=== PATIENT | female | born 1990 | race American Indian/Alaskan Native ===

== ENCOUNTER 2019-03-03 02:20 | Emergency (ER) | payer OTHER ==
[2019-03-03] MEDS ORDERED: IBUPROFEN 600 MG TAB PO ONE ×2 (03:28→03:32)
[2019-03-03 04:17] VITALS: BP 150/101
--- NOTE | 2019-03-03 04:25 | Emergency Department Report ---
ED ENT HPI - General Chief complaint: Earache Stated complaint: EAR PAIN Time Seen by Provider: 03/03/19 04:17 Source: patient Mode of arrival: Ambulatory Limitations: No Limitations - History of Present Illness Initial comments: 28-year-old -[place] female presents to the emergency room for 30 minutes left ear pain. Patient states that the pain woke her up from her sleep. Patient does admit to washing her hair yesterday. Patient denies any past medical history currently takes no medications on a daily basis. Patient has a history of penicillin allergies. MD complaint: ear pain Onset/Timin -: minutes(s) (prior to arrival) Location: L ear Severity: severe Severity scale (0 -10): 10 Quality: aching, sharp, constant Consistency: constant Improves with: none Worsens with: none Associated Symptoms: other (recent URI) - Related Data Previous Rx's Medication Instructions Recorded Last Taken Type Neomycin/Polymyxin B/Hydrocort 2 drop OT TID #1 bottle 03/03/19 Unknown Rx [Onrcwboa-Beqhpocjm-Ye Ear Susp] Allergies Allergy/AdvReac Type Severity Reaction Status Date / Time Penicillins Allergy Hives Verified 03/03/19 03:28 ED Dental HPI - General Chief complaint: Earache Stated complaint: EAR PAIN Time Seen by Provider: 03/03/19 04:17 Source: patient Mode of arrival: Ambulatory Limitations: No Limitations - Related Data Previous Rx's Medication Instructions Recorded Last Taken Type Neomycin/Polymyxin B/Hydrocort 2 drop OT TID #1 bottle 03/03/19 Unknown Rx [Sfkgulsr-Lwxnrtxpf-Wz Ear Susp] Allergies Allergy/AdvReac Type Severity Reaction Status Date / Time Penicillins Allergy Hives Verified 03/03/19 03:28 ED Review of Systems ROS: Stated complaint: EAR PAIN Other details as noted in HPI Comment: All other systems reviewed and negative ED Past Medical Hx - Past Medical History Previous Medical History?: No - Surgical History Past Surgical History?: Yes Additional Surgical History: C-Sec X 1 - Social History Smoking Status: Never Smoker Substance Use Type: None - Medications Home Medications: Home Medications Medication Instructions Recorded Confirmed Last Taken Type Neomycin/Polymyxin B/Hydrocort 2 drop OT TID #1 bottle 03/03/19 Unknown Rx [Zupllhwe-Ppphpxbpu-Dp Ear Susp] ED Physical Exam - General Limitations: No Limitations General appearance: alert, in no apparent distress - Head Head exam: Present: atraumatic, normocephalic - Eye Eye exam: Present: normal appearance - Expanded ENT Exam Expanded TM/Canal exam: Mastoid Tenderness: Left TM, Canal Tenderness: Left TM - Neck Neck exam: Present: normal inspection, full ROM - Neurological Exam Neurological exam: Present: alert, oriented X3, normal gait - Psychiatric Psychiatric exam: Present: normal affect, normal mood - Skin Skin exam: Present: warm, dry, intact, normal color. Absent: rash ED Course Vital Signs 03/03/19 03/03/19 02:26 04:16 Temperature 98.3 F Pulse Rate 82 74 Respiratory 18 20 Rate Blood Pressure 135/101 Blood Pressure 150/101 [Right] O2 Sat by Pulse 98 99 Oximetry ED Medical Decision Making - Medical Decision Making 28-year-old -S[place]i female presents to the emergency room for 30 minutes left ear pain. Patient states that the pain woke her up from her sleep. Patient does admit to washing her hair yesterday. Patient denies any past medical history currently takes no medications on a daily basis. Patient has a history of penicillin allergies. Critical care attestation.: If time is entered above; I have spent that time in minutes in the direct care of this critically ill patient, excluding procedure time. ED Disposition Clinical Impression: Left otitis externa Qualifiers: Otitis externa type: swimmer's ear Chronicity: acute Qualified Code(s): H60.332 - Swimmer's ear, left ear Disposition: DC-01 TO HOME OR SELFCARE Is pt being admited?: No Does the pt Need Aspirin: No Condition: Stable Instructions: Otitis Externa (ED) Prescriptions: Neomycin/Polymyxin B/Hydrocort [Ppnigbvb-Bhfoazkxu-Hp Ear Susp] 2 drop OT TID #1 bottle Referrals: FARAZ MALHOTRA MD [Staff Physician] - 3-5 Days Forms: Work/School Release Form(ED)
== END 2019-03-03 05:05 | disposition home or self-care (01) ==
LOC: ED 02:20
DX: H60.92 Unspecified otitis externa, left ear (principal); Z98.890 Other specified postprocedural states; Z79.899 Other long term (current) drug therapy; Z88.0 Allergy status to penicillin
CPT/HCPCS: 99282

== ENCOUNTER 2020-09-24 15:14 | Emergency (ER) | payer OTHER ==
[2020-09-24] MEDS ORDERED: IBUPROFEN 800 MG TAB PO ONE (16:40)
[2020-09-24] MEDS ORDERED: ACETAMINOPHEN 500 MG TAB PO ONE (16:40)
[2020-09-24] MEDS ORDERED: SODIUM CHLORIDE 0.9% 1000 ML IV SOLN IV ONE (16:43)
[2020-09-24] MEDS ORDERED: AZITHROMYCIN 250 MG TAB PO ONE (17:01)
[2020-09-24] MEDS ORDERED: AZITHROMYCIN/NS 500 MG/250 ML 500 MG/250 ML BAG IV ONE (17:12)
--- NOTE | 2020-09-24 17:15 | Emergency Department Report ---
HPI - General Chief Complaint: Fever Time Seen by Provider: 09/24/20 17:12 - HPI HPI: This is a 29-year-old -[place]ian female presents to the emergency department with a complaint of a mixed dry and productive cough, generalized body aches, and a subjective fever that has been going on since Sunday, 4 days ago. The patient has been taking ibuprofen without any alleged break in her fever. She last used ibuprofen last night. She has a past medical history of diabetes. She denies any tobacco or illicit drug use. She is vaccinated against COVID-19. She says that her son has just started to spike a fever. No recent travel. Her primary care physician is a Dr. Mendieta at [facility]. ED Past Medical Hx - Past Medical History Previous Medical History?: Yes Hx Diabetes: Yes - Surgical History Past Surgical History?: Yes Additional Surgical History: C-Sec X 1 - Social History Smoking Status: Never Smoker Substance Use Type: None - Medications Home Medications: Home Medications Medication Instructions Recorded Confirmed Last Taken Type Neomycin/Polymyxin B/Hydrocort 2 drop OT TID #1 bottle 03/03/19 Unknown Rx [Tyuwzknh-Qysseeuje-Sk Ear Susp] Fluconazole [Diflucan TAB] 100 mg PO QDAY #1 tablet 09/24/20 Unknown Rx Sulfamethoxazole/Trimethoprim 1 each PO BID #10 tablet 09/24/20 Unknown Rx [Bactrim DS TAB] ED Review of Systems ROS: Stated complaint: FEVER, SOB BODYACHE Other details as noted in HPI Comment: All other systems reviewed and negative Constitutional: chills, fever Eyes: denies: eye pain, vision change ENT: denies: ear pain, throat pain Respiratory: cough. denies: shortness of breath Cardiovascular: denies: chest pain, palpitations Gastrointestinal: denies: abdominal pain, vomiting Genitourinary: denies: dysuria, discharge Musculoskeletal: myalgia. denies: joint swelling Skin: denies: rash, lesions Neurological: denies: headache, weakness Physical Exam - Physical Exam Vital Signs: Vital Signs 09/24/20 16:35 Temperature 103.1 F H Pulse Rate 118 H Respiratory 22 Rate Blood Pressure 145/110 [Right] O2 Sat by Pulse 98 Oximetry Physical Exam: GENERAL: The patient is well-developed well-nourished. HENT: Normocephalic. Atraumatic. Patient has moist mucous membranes. EYES: Extraocular motions are intact. Pupils equal reactive to light bilaterally. NECK: Supple. Trachea is midline. CHEST/LUNGS: Clear to auscultation. A productive sounding cough heard during e xamination. No tachypnea or accessory muscle use. There is no respiratory distress noted. HEART/CARDIOVASCULAR: Regular. There is mild tachycardia. There is no murmur. ABDOMEN: Abdomen is soft, nontender. Patient has normal bowel sounds. There is no abdominal distention. SKIN: Skin is warm and dry. NEURO: The patient is awake, alert, and oriented. The patient is cooperative. The patient has no focal neurologic deficits. Normal speech. MUSCULOSKELETAL: There is no tenderness or deformity. There is no limitation range of motion. ED Course Vital Signs 09/24/20 16:35 Temperature 103.1 F H Pulse Rate 118 H Respiratory 22 Rate Blood Pressure 145/110 [Right] O2 Sat by Pulse 98 Oximetry ED Medical Decision Making - Lab Data Result diagrams: 09/24/20 17:00 09/24/20 17:00 Lab Results 09/24/20 09/24/20 09/24/20 Range/Units 17:00 17:00 17:00 WBC 3.8 L (4.5-11.0) K/mm3 RBC 5.24 H (3.65-5.03) M/mm3 Hgb 14.6 H (10.1-14.3) gm/dl Hct 44.4 H (30.3-42.9) % MCV 85 (79-97) fl MCH 28 (28-32) pg MCHC 33 (30-34) % RDW 14.3 (13.2-15.2) % Plt Count 172 (140-440) K/mm3 Lymph % (Auto) 24.1 (13.4-35.0) % [place] % (Auto) 7.5 H (0.0-7.3) % Eos % (Auto) 0.1 (0.0-4.3) % Baso % (Auto) 0.4 (0.0-1.8) % Lymph # (Auto) 0.9 L (1.2-5.4) K/mm3 [place] # (Auto) 0.3 (0.0-0.8) K/mm3 Eos # (Auto) 0.0 (0.0-0.4) K/mm3 Baso # (Auto) 0.0 (0.0-0.1) K/mm3 Seg Neutrophils % 67.9 (40.0-70.0) % Seg Neutrophils # 2.6 (1.8-7.7) K/mm3 Sodium 136 L (137-145) mmol/L Potassium 3.7 (3.6-5.0) mmol/L Chloride 99.5 (98-107) mmol/L Carbon Dioxide 24 (22-30) mmol/L Anion Gap 16 mmol/L BUN 9 (7-17) mg/dL Creatinine 0.7 (0.6-1.2) mg/dL Estimated GFR > 60 ml/min BUN/Creatinine Ratio 13 % Glucose 197 H (65-100) mg/dL Lactic Acid 1.60 (0.7-2.0) mmol/L Calcium 9.2 (8.4-10.2) mg/dL Total Bilirubin 0.40 (0.1-1.2) mg/dL AST 25 (5-40) units/L ALT 39 (7-56) units/L Alkaline Phosphatase 76 (35-129) units/L Total Creatine Kinase (30-135) units/L Total Protein 8.0 (6.3-8.2) g/dL Albumin 4.3 (3.9-5) g/dL Albumin/Globulin Ratio 1.2 % HCG, Qual (Negative) Urine Color (Yellow) Urine Turbidity (Clear) Urine pH (5.0-7.0) Ur Specific [place] (1.003-1.030) Urine Protein (Negative) mg/dL Urine Glucose (UA) (Negative) mg/dL Urine Ketones (Negative) mg/dL Urine Blood (Negative) Urine Nitrite (Negative) Urine Bilirubin (Negative) Urine Urobilinogen (<2.0) mg/dL Ur Leukocyte Esterase (Negative) Urine WBC (Auto) (0.0-6.0) /HPF Urine RBC (Auto) (0.0-6.0) /HPF U Epithel Cells (Auto) (0-13.0) /HPF Urine Bacteria (Auto) (Negative) /HPF Urine Mucus /HPF Urine Yeast (Budding) /HPF 09/24/20 09/24/20 09/24/20 Range/Units 17:00 17:00 Unknown WBC (4.5-11.0) K/mm3 RBC (3.65-5.03) M/mm3 Hgb (10.1-14.3) gm/dl Hct (30.3-42.9) % MCV (79-97) fl MCH (28-32) pg MCHC (30-34) % RDW (13.2-15.2) % Plt Count (140-440) K/mm3 Lymph % (Auto) (13.4-35.0) % [place] % (Auto) (0.0-7.3) % Eos % (Auto) (0.0-4.3) % Baso % (Auto) (0.0-1.8) % Lymph # (Auto) (1.2-5.4) K/mm3 [place] # (Auto) (0.0-0.8) K/mm3 Eos # (Auto) (0.0-0.4) K/mm3 Baso # (Auto) (0.0-0.1) K/mm3 Seg Neutrophils % (40.0-70.0) % Seg Neutrophils # (1.8-7.7) K/mm3 Sodium (137-145) mmol/L Potassium (3.6-5.0) mmol/L Chloride (98-107) mmol/L Carbon Dioxide (22-30) mmol/L Anion Gap mmol/L BUN (7-17) mg/dL Creatinine (0.6-1.2) mg/dL Estimated GFR ml/min BUN/Creatinine Ratio % Glucose (65-100) mg/dL Lactic Acid (0.7-2.0) mmol/L Calcium (8.4-10.2) mg/dL Total Bilirubin (0.1-1.2) mg/dL AST (5-40) units/L ALT (7-56) units/L Alkaline Phosphatase (35-129) units/L Total Creatine Kinase 87 (30-135) units/L Total Protein (6.3-8.2) g/dL Albumin (3.9-5) g/dL Albumin/Globulin Ratio % HCG, Qual Negative (Negative) Urine Color Yellow (Yellow) Urine Turbidity Cloudy (Clear) Urine pH 5.0 (5.0-7.0) Ur Specific [place] 1.028 (1.003-1.030) Urine Protein 30 mg/dl (Negative) mg/dL Urine Glucose (UA) >=500 (Negative) mg/dL Urine Ketones Tr (Negative) mg/dL Urine Blood Neg (Negative) Urine Nitrite Neg (Negative) Urine Bilirubin Neg (Negative) Urine Urobilinogen 2.0 (<2.0) mg/dL Ur Leukocyte Esterase Lg (Negative) Urine WBC (Auto) 56.0 H (0.0-6.0) /HPF Urine RBC (Auto) 4.0 (0.0-6.0) /HPF U Epithel Cells (Auto) 29.0 H (0-13.0) /HPF Urine Bacteria (Auto) 2+ (Negative) /HPF Urine Mucus Few /HPF Urine Yeast (Budding) 1+ /HPF - Radiology Data Radiology results: image reviewed interpreted by me: Chest x-ray does not show any acute process. There are no pleural effusions, obvious pneumonia and there is no pneumothorax. No widened mediastinum. - Medical Decision Making This patient presents to the emergency department with the complaint of a 4-day history of fever, body aches, and a mixed dry and productive cough. Heart and lungs are normal to auscultation and the patient does not appear in any respiratory or acute distress. There is some mild tachypnea, most likely secondary to the patient's fever which was initially 103.1 F. The patient was given both ibuprofen and Tylenol through triage and a code sepsis was initiated through triage. The patient's labs have been mostly unremarkable including no leukocytosis, no lactic acidosis, but urinalysis does show urinary tract infection. The patient was given some IV fluid resuscitation and a dose of empiric antibiotics for the code sepsis. The patient's symptoms are most consistent with a viral upper respiratory infection, however the patient is gett ing a prescription for antibiotics for the UTI. She has been instructed to follow-up with the PCP and return to the ER with any worsening of her symptoms or with any acute distress. The patient's vitals were rechecked and the fever has started to come down, and the tachycardia is improving. We discussed using both Tylenol and ibuprofen for fever and discomfort. Critical Care Time: No Critical care attestation.: If time is entered above; I have spent that time in minutes in the direct care of this critically ill patient, excluding procedure time. ED Disposition Clinical Impression: Viral upper respiratory infection UTI (urinary tract infection) Qualifiers: Urinary tract infection type: acute cystitis Hematuria presence: without hematuria Qualified Code(s): N30.00 - Acute cystitis without hematuria Fever Qualifiers: Fever type: unspecified Qualified Code(s): R50.9 - Fever, unspecified Disposition: TO HOME OR SELFCARE Is pt being admited?: No Condition: Stable Instructions: Fever, Adult, Upper Respiratory Infection, Adult, Urinary Tract Infection, Adult Additional Instructions: Please follow-up with a primary care physician in the next few days. You can take Tylenol every 4-6 hours and ibuprofen every 6-8 hours, using the dosing on the back of the bottle, as needed for fever or body aches. Take the antibiotics as prescribed. Return to the emergency department with any worsening of your symptoms, new or concerning symptoms not addressed during this current emergency department visit, or with any acute distress. Prescriptions: Sulfamethoxazole/Trimethoprim [Bactrim DS TAB] 1 each PO BID #10 tablet Fluconazole [Diflucan TAB] 100 mg PO QDAY #1 tablet Referrals: MARISOL CARBAJAL MD [Staff Physician] - 3-5 Days [facility] [Provider Group] - 3-5 Days Time of Disposition: 18:46
[2020-09-24 17:16] LABS: Basophils % (Auto) 0.4 % (0.0-1.8); Eosinophils % (Auto) 0.1 % (0.0-4.3); Hematocrit 44.4 % (30.3-42.9); Hemoglobin 14.6 gm/dl (10.1-14.3); Lymphocytes # (Auto) 0.9 K/mm3 (1.2-5.4); Lymphocytes % (Auto) 24.1 % (13.4-35.0); Mean Corpuscular HGB Conc 33 % (30-34); Mean Corpuscular Volume 85 fl (79-97); Monocytes # (Auto) 0.3 K/mm3 (0.0-0.8); Monocytes % (Auto) 7.5 % (0.0-7.3); Platelet Count 172 K/mm3 (140-440); Red Blood Count 5.24 M/mm3 (3.65-5.03); Red Cell Distribution Width 14.3 % (13.2-15.2)
[2020-09-24 17:33] LABS: Alanine Aminotransferase 39 units/L (7-56); Albumin 4.3 g/dL (3.9-5); Blood Urea Nitrogen 9 mg/dL (7-17); Calcium 9.2 mg/dL (8.4-10.2); Hemolysis Index 2
[2020-09-24 17:34] LABS: BUN/Creatinine Ratio 13
[2020-09-24 17:41] LABS: Bacteria,Urine 2+ /HPF (Negative); Bilirubin,Urine NEG (Negative); Blood,Urine NEG (Negative); Color,Urine Yellow (Yellow); Mucus,Urine FEW /HPF
[2020-09-24 17:46] VITALS: BP 135/88
--- NOTE | 2020-09-24 17:48 | XRay Report ---
CHEST 1 VIEW 09/24/2020 5:43 PM INDICATION / CLINICAL INFORMATION: Cough. COMPARISON: None available. FINDINGS: SUPPORT DEVICES: None. HEART / MEDIASTINUM: No significant abnormality. LUNGS / PLEURA: No significant pulmonary or pleural abnormality. No pneumothorax. ADDITIONAL FINDINGS: No significant additional findings. IMPRESSION: 1. No acute findings. Signer Name: Martin Huynh MD Signed: 09/24/2020 5:43 PM Workstation Name: [id number]
== END 2020-09-24 20:24 | disposition home or self-care (01) ==
LOC: ED 15:14
DX: N39.0 Urinary tract infection, site not specified (principal); J06.9 Acute upper respiratory infection, unspecified; B97.89 Other viral agents as the cause of diseases classified elsewhere; R50.9 Fever, unspecified; E11.9 Type 2 diabetes mellitus without complications; Z98.890 Other specified postprocedural states; Z79.899 Other long term (current) drug therapy; Z88.0 Allergy status to penicillin
CPT/HCPCS: 36415; 71045; 80053; 81001; 82140; 82550; 84703; 85025; 87040; 87086; 96365; 99284; J0456; J7030

== ENCOUNTER 2020-09-27 17:46 | Emergency (ER) | payer OTHER ==
[2020-09-27 22:12] VITALS: BP 136/85
--- NOTE | 2020-09-27 22:14 | Emergency Department Report ---
- General Chief Complaint: Upper Respiratory Infection Stated Complaint: SHORTNESS OF BREATH/FEVER NO APPETITE Time Seen by Provider: 09/27/20 21:51 Source: patient Mode of arrival: Ambulatory Limitations: No Limitations - History of Present Illness Initial Comments: 29-year-old female, history of diabetes, presents to ED with shortness of breath, URI symptoms, concern for COVID-19 infection. Patient states symptoms began 6 days ago, consisting of fever, nausea, vomiting, cough, loss of smell and taste, and now shortness of breath. Patient states her son was diagnosed with COVID-19 3 days ago. Patient states she was tested at [facility] on yesterday but has not yet received her results. Patient reports she received the [employer] COVID-19 vaccine in May 2020. Patient was seen here in the ED 3 days ago for same. Chest x-ray was normal at that time. She was discharged home. MD Complaint: fever, cough -: days(s) (6) Severity: moderate Consistency: constant Improves With: nothing Worsens With: nothing Context: sick contacts Associated Symptoms: fever, headache, chest pain, shortness of breath, nausea, vomiting Treatments Prior to Arrival: Ibuprofen - Related Data Previous Rx's Medication Instructions Recorded Last Taken Type Neomycin/Polymyxin B/Hydrocort 2 drop OT TID #1 bottle 03/03/19 Unknown Rx [Dtwdltoa-Rbjfcjsyz-Iv Ear Susp] Fluconazole [Diflucan TAB] 100 mg PO QDAY #1 tablet 09/24/20 Unknown Rx Sulfamethoxazole/Trimethoprim 1 each PO BID #10 tablet 09/24/20 Unknown Rx [Bactrim DS TAB] Azithromycin [Zithromax TAB] 250 mg PO QDAY 4 Days #4 tablet 09/28/20 Unknown Rx Benzonatate [Tessalon Perles] 100 mg PO Q8HR PRN #20 capsule 09/28/20 Unknown Rx Ondansetron [Zofran Odt] 4 mg PO Q8HR PRN #20 tab.rapdis 09/28/20 Unknown Rx Allergies Allergy/AdvReac Type Severity Reaction Status Date / Time Penicillins Allergy Hives Verified 03/03/19 03:28 ED Review of Systems ROS: Stated complaint: SHORTNESS OF BREATH/FEVER NO APPETITE Other details as noted in HPI Comment: All other systems reviewed and negative Constitutional: fever ENT: other (Reports loss of smell and taste) Respiratory: shortness of breath Cardiovascular: chest pain Gastrointestinal: nausea, vomiting ED Past Medical Hx - Past Medical History Previous Medical History?: Yes Hx Diabetes: Yes - Surgical History Past Surgical History?: Yes Additional Surgical History: C-Sec X 1 - Social History Smoking Status: Never Smoker Substance Use Type: None - Medications Home Medications: Home Medications Medication Instructions Recorded Confirmed Last Taken Type Neomycin/Polymyxin B/Hydrocort 2 drop OT TID #1 bottle 03/03/19 Unknown Rx [Emxymkge-Cvdwhrluf-Vl Ear Susp] Fluconazole [Diflucan TAB] 100 mg PO QDAY #1 tablet 09/24/20 Unknown Rx Sulfamethoxazole/Trimethoprim 1 each PO BID #10 tablet 09/24/20 Unknown Rx [Bactrim DS TAB] Azithromycin [Zithromax TAB] 250 mg PO QDAY 4 Days #4 tablet 09/28/20 Unknown Rx Benzonatate [Tessalon Perles] 100 mg PO Q8HR PRN #20 capsule 09/28/20 Unknown Rx Ondansetron [Zofran Odt] 4 mg PO Q8HR PRN #20 tab.rapdis 09/28/20 Unknown Rx ED Physical Exam - General Limitations: No Limitations General appearance: alert - Head Head exam: Present: atraumatic, normocephalic - Eye Eye exam: Present: normal appearance, EOMI - ENT ENT exam: Present: mucous membranes moist - Neck Neck exam: Present: normal inspection - Respiratory Respiratory exam: Present: respiratory distress (Mild), other (Patient is tachypneic, breathless when talking) - Cardiovascular Cardiovascular Exam: Present: normal rhythm, tachycardia - GI/Abdominal GI/Abdominal exam: Present: soft. Absent: distended, tenderness - Extremities Exam Extremities exam: Present: normal inspection - Neurological Exam Neurological exam: Present: alert, oriented X3 - Psychiatric Psychiatric exam: Present: normal affect, normal mood - Skin Skin exam: Present: warm, dry, intact, normal color ED Course Vital Signs 09/27/20 09/27/20 09/27/20 19:01 19:26 21:57 Temperature 99.7 F H Pulse Rate 101 H Respiratory 18 Rate Blood Pressure 136/85 Blood Pressure 120/79 [Right] O2 Sat by Pulse 93 99 95 Oximetry 09/27/20 09/27/20 09/27/20 22:00 22:01 22:15 Temperature Pulse Rate 97 H Respiratory 29 H Rate Blood Pressure 136/85 136/85 Blood Pressure [Right] O2 Sat by Pulse 95 95 95 Oximetry 09/27/20 09/27/20 09/27/20 22:31 23:01 23:15 Temperature Pulse Rate 96 H 97 H 100 H Respiratory 30 H 30 H 18 Rate Blood Pressure 136/85 136/85 136/85 Blood Pressure [Right] O2 Sat by Pulse 97 95 96 Oximetry 09/27/20 09/27/20 09/28/20 23:31 23:45 00:01 Temperature Pulse Rate 97 H 96 H 97 H Respiratory 30 H 24 28 H Rate Blood Pressure 136/85 136/85 136/85 Blood Pressure [Right] O2 Sat by Pulse 95 96 95 Oximetry 09/28/20 00:15 Temperature Pulse Rate 94 H Respiratory 27 H Rate Blood Pressure 136/85 Blood Pressure [Right] O2 Sat by Pulse 92 Oximetry ED Medical Decision Making - Lab Data Result diagrams: 09/27/20 23:11 09/27/20 23:11 - EKG Data -: EKG Interpreted by Me EKG shows normal: sinus rhythm, axis, intervals, QRS complexes, ST-T waves Rate: normal - EKG Data Interpretation: no acute changes - Radiology Data Radiology results: report reviewed, image reviewed - Medical Decision Making 29-year-old female presents to ED with shortness of breath. Patient likely has COVID-19 infection, as her son recently tested positive 3 days ago. Patient is awaiting her COVID-19 test results. She reports fever, cough, headache, loss of smell and taste, shortness of breath. At rest, O2 sat are 96%. With ambulation O2 sat drops no lower than 92% on room air. Chest x-ray shows minimal patchy airspace disease in the lung bases which could represent atelecta sis or evolving pneumonia. EKG is normal. Troponin and D-dimer are both normal as well. Patient will be discharged at this time with prescriptions. I have advised patient to buy a portable pulse oximeter so that she will be able to check her O2 sats. Return precautions given. - Differential Diagnosis COVID-19, pneumonia, PE, ACS Critical care attestation.: If time is entered above; I have spent that time in minutes in the direct care of this critically ill patient, excluding procedure time. ED Disposition Clinical Impression: Suspected 2019 novel coronavirus infection, Pneumonia Disposition: DC-01 TO HOME OR SELFCARE Is pt being admited?: No Condition: Stable Instructions: COVID-19 Frequently Asked Questions, Prevent the Spread of COVID- 19 if You Are Sick - CDC, Bacterial Pneumonia (ED) Additional Instructions: Please quarantine for total of 14 days. Please buy a pulse oximeter to check your oxygen level. If it drops below 90% return to the emergency room. Return to emergency room if you begin to feel worse. Prescriptions: Benzonatate [Tessalon Perles] 100 mg PO Q8HR PRN #20 capsule PRN Reason: Cough Azithromycin [Zithromax TAB] 250 mg PO QDAY 4 Days #4 tablet Ondansetron [Zofran Odt] 4 mg PO Q8HR PRN #20 tab.rapdis PRN Reason: Vomiting Referrals: PRIMARY CARE, [Primary Care Provider] - 3-5 Days Time of Disposition: 01:09
--- NOTE | 2020-09-27 22:41 | XRay Report ---
CHEST 1 VIEW 09/27/2020 9:22 PM INDICATION / CLINICAL INFORMATION: SOB, cough; son positive for COVID. COMPARISON: 09/24/2020 FINDINGS: SUPPORT DEVICES: None. HEART / MEDIASTINUM: No significant abnormality. LUNGS / PLEURA: There is minimal patchy airspace opacity noted in the lung bases. No pneumothorax. ADDITIONAL FINDINGS: No significant additional findings. IMPRESSION: 1. There is minimal patchy airspace opacity noted in the lung bases. Which could represent atelectasi s or evolving pneumonia including atypical pneumonia. Signer Name: Miguel A Kellre MD Signed: 09/27/2020 10:36 PM Workstation Name: [id number]
[2020-09-28 00:04] LABS: Hemoglobin 14.1 gm/dl (10.1-14.3); Lymphocytes # (Auto) 1.3 K/mm3 (1.2-5.4); Monocytes # (Auto) 0.3 K/mm3 (0.0-0.8)
[2020-09-28 00:14] LABS: Blood Urea Nitrogen 9 mg/dL (7-17); Calcium 8.8 mg/dL (8.4-10.2); Hemolysis Index 0
[2020-09-28 00:16] LABS: BUN/Creatinine Ratio 13
[2020-09-28 00:19] LABS: Basophils % (Auto) 0.3 % (0.0-1.8); Hematocrit 42.7 % (30.3-42.9); Lymphocytes % (Auto) 23.7 % (13.4-35.0); Mean Corpuscular HGB Conc 33 % (30-34); Mean Corpuscular Volume 84 fl (79-97); Monocytes % (Auto) 6.1 % (0.0-7.3); Platelet Count 183 K/mm3 (140-440); Red Blood Count 5.07 M/mm3 (3.65-5.03); Red Cell Distribution Width 14.2 % (13.2-15.2)
[2020-09-28] MEDS ORDERED: AZITHROMYCIN 250 MG TAB PO ONE (01:06)
--- NOTE | 2020-09-28 10:22 | Electrocardiograph Report ---
[facility] Test Date: 2020-09-27 Test Time: 23:45:46 Pat Name: LISBETH ROSS Department: Room: Gender: F Diesel Engine Operator: CHANTELLE : 1990 Requested By: BELINDA AHN Order Number: [id number] Reading MD: Chin Ureña Measurements Intervals [place] Rate: 94 P: 38 [place]: 166 QRS: 40 QRSD: 85 T: 7 QT: 350 QTc: 438 Interpretive Statements Sinus rhythm No previous ECG available for comparison Electronically Signed On 09-28-2020 10:22:22 EDT by Chin Ureña
== END 2020-09-28 01:30 | disposition home or self-care (01) ==
LOC: ED 17:46
DX: J18.9 Pneumonia, unspecified organism (principal); Z20.822 Contact with and (suspected) exposure to COVID-19; E11.9 Type 2 diabetes mellitus without complications; Z98.890 Other specified postprocedural states; Z79.2 Long term (current) use of antibiotics; Z79.899 Other long term (current) drug therapy; Z88.0 Allergy status to penicillin
CPT/HCPCS: 36415; 71045; 80048; 84484; 84703; 85025; 85379; 93005

== ENCOUNTER 2021-03-26 17:13 | Emergency (ER) | payer OTHER ==
--- NOTE | 2021-03-26 18:44 | Emergency Department Report ---
ED Rash HPI - HPI Chief Complaint: Skin Rash Stated Complaint: RASH OVER TRUNK OF BODY, ITCHY Duration: 3 Days Location: Abdomen Rash Symptoms: Yes Itching, No Facial Swelling, No Tongue/Oral Swelling, No Breathing Difficulties, No Choking Sensation, No Wheezing/Dyspnea, No Peeling, No Blistering, No Fever, No Lightheaded, No Malaise, No Myalgias Severity: mild Other History: 30-year-old female presents to the ED with rash over the abdomen x3 days she states that she is 5 weeks . Patient states that she has taken Benadryl x1 with mild relief. Patient is unknown what cause the rash. She states that she awakened with a rash on . Denies any other complaint. ED Review of Systems ROS: Stated complaint: RASH OVER TRUNK OF BODY, ITCHY Other details as noted in HPI Constitutional: denies: chills, fever Eyes: denies: eye pain, eye discharge, vision change ENT: denies: ear pain, throat pain Respiratory: denies: cough, shortness of breath, wheezing Cardiovascular: denies: chest pain, palpitations Endocrine: no symptoms reported Gastrointestinal: denies: abdominal pain, nausea, diarrhea Genitourinary: denies: urgency, dysuria, discharge Musculoskeletal: denies: back pain, joint swelling, arthralgia Skin: rash. denies: lesions Neurological: denies: headache, weakness, paresthesias Psychiatric: denies: anxiety, depression Hematological/Lymphatic: denies: easy bleeding, easy bruising ED Past Medical Hx - Past Medical History Hx Diabetes: Yes - Surgical History Additional Surgical History: C-Sec X 1 - Social History Smoking Status: Never Smoker Substance Use Type: None - Medications Home Medications: Home Medications Medication Instructions Recorded Confirmed Last Taken Type Neomycin/Polymyxin B/Hydrocort 2 drop OT TID #1 bottle 03/03/19 Unknown Rx [Wcopvfhr-Zspcypnub-Co Ear Susp] Fluconazole [Diflucan TAB] 100 mg PO QDAY #1 tablet 09/24/20 Unknown Rx Sulfamethoxazole/Trimethoprim 1 each PO BID #10 tablet 09/24/20 Unknown Rx [Bactrim DS TAB] Azithromycin [Zithromax TAB] 250 mg PO QDAY 4 Days #4 tablet 09/28/20 Unknown Rx Benzonatate [Tessalon Perles] 100 mg PO Q8HR PRN #20 capsule 09/28/20 Unknown Rx Ondansetron [Zofran Odt] 4 mg PO Q8HR PRN #20 tab.rapdis 09/28/20 Unknown Rx Rash Exam - Exam General: Vital signs noted. No distress. Alert and acting appropriately. HEENT: No Periorbital Edema, No Conjuctival Injection, No Chemosis, No Perioral Edema, No Tongue Edema, No Uvular Edema, No Compromised Airway, No Drooling Lungs: Yes Good Air Exchange (Normal Breath Sounds), No Wheezes, No Ronchi, No Stridor, No Cough, No Labored Respirations, No Retractions, No Use of Accessory Muscles, No Other Abnormal Lung Sounds Heart: Yes Regular, No Murmur Skin: Yes Erythema, No Urticarial Rash, No Maculopapular Rash, No Morbilliform rash, No Bulla(e), No Excoriations, No Weeping, No Tenderness, No Edema, No Encrustations Other: Positive: Abdomen Normal, Neurologic Normal, Musculoskeletal Normal ED Medical Decision Making - Medical Decision Making 30-year-old female presents to the ED with rash over the abdomen x3 days she states that she is 5 weeks . Patient states that she has taken Benadryl x1 with mild relief. Patient is unknown what cause the rash. She states that she awakened with a rash on . Denies any other complaint. Discussed plan of care with patient . Explained to patient to take Benadryl [id number] every 8 hours for itching. Follow-up with primary care doctor or [facility]. Patient verbalized discharge plan and instructions - Differential Diagnosis Bed Bug ,scabies, contact dermatitis Critical care attestation.: If time is entered above; I have spent that time in minutes in the direct care of this critically ill patient, excluding procedure time. ED Disposition Clinical Impression: Contact dermatitis Qualifiers: Contact dermatitis type: unspecified Contact dermatitis trigger: other trigger Qualified Code(s): L25.8 - Unspecified contact dermatitis due to other agents Disposition: HOME / SELF CARE / HOMELESS Is pt being admited?: No Does the pt Need Aspirin: No Condition: Stable Instructions: Contact Dermatitis, [id number] Additional Instructions: Take Benadryl [id number] Follow-up with primary care doctor or [facility] Return to the ED for any worsening symptoms Referrals: PRIMARY CARE, [Primary Care Provider] - 3-5 Days Time of Disposition: 18:49
[2021-03-26 18:49] VITALS: BP 139/58
== END 2021-03-26 19:00 | disposition home or self-care (01) ==
LOC: ED 17:13
DX: O26.891 Other specified pregnancy related conditions, first trimester (principal); L25.8 Unspecified contact dermatitis due to other agents; Z3A.01 Less than 8 weeks gestation of pregnancy
CPT/HCPCS: 99282

== ENCOUNTER 2021-05-08 10:36 | Emergency (ER) | payer OTHER ==
[2021-05-08] MEDS ORDERED: IBUPROFEN 800 MG TAB PO ONE (12:09)
--- NOTE | 2021-05-08 12:48 | XRay Report ---
LEFT FOOT 3 VIEW(S) INDICATION / CLINICAL INFORMATION: pain COMPARISON: None available. FINDINGS: BONES / JOINT(S): No acute fracture or subluxation. No significant arthritis. 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 ADDITIONAL FINDINGS: None. Signer Name: Juancarlos Ramos DO Signed: 05/08/2021 12:44 PM Workstation Name: [id number]
--- NOTE | 2021-05-08 13:29 | Emergency Department Report ---
ED Lower Extremity HPI - General Chief Complaint: Pain General Stated Complaint: FOOT AND LEG PAIN Time Seen by Provider: 05/08/21 11:42 Source: patient Mode of arrival: Wheelchair Limitations: Physical Limitation - History of Present Illness Initial Comments: This is a 30-year-old female nontoxic, well nourished in appearance, no acute signs of distress presents to the ED with c/o of left foot pain x several days. Patient denies any injuries or trauma. Patient denies any numbness, tingling, fever, chills, nausea, vomiting, chest pain, shortness of breath, headache, stiff neck. Patient denies any joint swelling or joint redness. Patient denies decreased range of motion. Patient stated has decreased gait due to pain. Patient stated allergies to PCN. MD Complaint: foot injury -: days(s) Injury: Foot: Left Place: home Severity: mild Severity scale (0 -10): 3 Improves With: immobilization Worsens With: weight bearing, palpation Associated Symptoms: able to partially bear weight. denies: snap/pop sensation, swelling, numbness, tingling, unable to bear weight - Related Data Previous Rx's Medication Instructions Recorded Last Taken Type Neomycin/Polymyxin B/Hydrocort 2 drop OT TID #1 bottle 03/03/19 Unknown Rx [Fjsttwey-Nkdzmcpuo-Fv Ear Susp] Fluconazole [Diflucan TAB] 100 mg PO QDAY #1 tablet 09/24/20 Unknown Rx Sulfamethoxazole/Trimethoprim 1 each PO BID #10 tablet 09/24/20 Unknown Rx [Bactrim DS TAB] Azithromycin [Zithromax TAB] 250 mg PO QDAY 4 Days #4 tablet 09/28/20 Unknown Rx Benzonatate [Tessalon Perles] 100 mg PO Q8HR PRN #20 capsule 09/28/20 Unknown Rx Ondansetron [Zofran Odt] 4 mg PO Q8HR PRN #20 tab.rapdis 09/28/20 Unknown Rx Naproxen 500 mg PO Q12H PRN #12 tab 05/08/21 Unknown Rx Allergies Allergy/AdvReac Type Severity Reaction Status Date / Time Penicillins Allergy Hives Verified 03/03/19 03:28 ED Review of Systems ROS: Stated complaint: FOOT AND LEG PAIN Other details as noted in HPI Comment: All other systems reviewed and negative Constitutional: denies: chills, fever Eyes: denies: eye pain, eye discharge, vision change ENT: denies: ear pain, throat pain Respiratory: denies: cough, shortness of breath, wheezing Cardiovascular: denies: chest pain, palpitations Endocrine: no symptoms reported Gastrointestinal: denies: abdominal pain, nausea, diarrhea Genitourinary: denies: urgency, dysuria, discharge Musculoskeletal: denies: back pain, joint swelling, arthralgia Skin: denies: rash, lesions Neurological: denies: headache, weakness, paresthesias Psychiatric: denies: anxiety, depression Hematological/Lymphatic: denies: easy bleeding, easy bruising ED Past Medical Hx - Past Medical History Hx Diabetes: Yes - Surgical History Additional Surgical History: C-Sec X 1 - Social History Smoking Status: Never Smoker Substance Use Type: None - Medications Home Medications: Home Medications Medication Instructions Recorded Confirmed Last Taken Type Neomycin/Polymyxin B/Hydrocort 2 drop OT TID #1 bottle 03/03/19 Unknown Rx [Ntublkjj-Zriqdftwl-Pe Ear Susp] Fluconazole [Diflucan TAB] 100 mg PO QDAY #1 tablet 09/24/20 Unknown Rx Sulfamethoxazole/Trimethoprim 1 each PO BID #10 tablet 09/24/20 Unknown Rx [Bactrim DS TAB] Azithromycin [Zithromax TAB] 250 mg PO QDAY 4 Days #4 tablet 09/28/20 Unknown Rx Benzonatate [Tessalon Perles] 100 mg PO Q8HR PRN #20 capsule 09/28/20 Unknown Rx Ondansetron [Zofran Odt] 4 mg PO Q8HR PRN #20 tab.rapdis 09/28/20 Unknown Rx Naproxen 500 mg PO Q12H PRN #12 tab 05/08/21 Unknown Rx ED Physical Exam - General Limitations: Physical Limitation General appearance: alert, in no apparent distress - Head Head exam: Present: atraumatic, normocephalic - Eye Eye exam: Present: normal appearance - Neck Neck exam: Present: normal inspection, full ROM. Absent: lymphadenopathy - Respiratory Respiratory exam: Absent: respiratory distress - Cardiovascular Cardiovascular Exam: Present: regular rate - Extremities Exam Extremities exam: Present: normal inspection, full ROM, tenderness, normal capillary refill. Absent: pedal edema, joint swelling, calf tenderness - Expanded Lower Extremity Exam Left Hip exam: Present: normal inspection, full ROM. Absent: tenderness, swelling Upper Leg exam: Present: normal inspection, full ROM. Absent: tenderness, swelling Knee exam: Present: normal inspection, full ROM. Absent: tenderness, swelling Lower Leg exam: Present: normal inspection, full ROM. Absent: tenderness, swelling, abrasion, laceration, ecchymosis, deformity, crepidus, dislocation, erythema, palpable cord, Alan's sign Ankle exam: Present: normal inspection, full ROM. Absent: tenderness, swelling, abrasion, laceration, ecchymosis, deformity, crepidus, dislocation, erythema, anterior draw sign Foot/Toe exam: Present: normal inspection, full ROM, tenderness. Absent: swell ing, abrasion, laceration, ecchymosis, deformity, crepidus, dislocation, erythema, amputation, puncture wound, foreign body, calcaneal tenderness, tenderness at base of 5th metatarsal, nail avulsion, subungual hematoma Neuro vascular tendon exam: Present: no vascular compromise Gait: Positive: observed and limited by pain 1 - pain here - Back Exam Back exam: Present: normal inspection, full ROM - Neurological Exam Neurological exam: Present: alert, oriented X3 - Psychiatric Psychiatric exam: Present: normal affect, normal mood - Skin Skin exam: Present: warm, dry, intact, normal color. Absent: rash ED Course Vital Signs 05/08/21 05/08/21 10:58 12:47 Temperature 98.7 F Pulse Rate 93 H Respiratory 18 18 Rate Blood Pressure 149/110 O2 Sat by Pulse 99 Oximetry - Reevaluation(s) Reevaluation #1: 05/08/21 13:27 Patient is speaking in full sentences with no signs of distress noted. ED Lower Extremity MDM - Medical Decision Making This is a 30-year-old female that presents with left plantar fasciitis. Patient is stable and was examined by me. I referred patient to an orthopedic doctor f or further evaluation for possible MRI. X-ray has been obtained and dictated by the radiologist. Patient is notified of the x-ray report with noted by the patient. Patient does have normal gait with some tenderness and no joint swelling. No ecchymosis. no joint redness or swelling. Not warm to touch. No signs of cellulites present. Patient educated on [id number] remedies for plantar fasciitis including a roller. Patient was instructed to RICE therapy. Patient received Motrin for pain. Patient is discharged with Naproxen. At time of discharge, the patient does not seem toxic or ill in appearance. No acute signs of distress noted. Patient agrees to discharge treatment plan of care. No further questions noted by the patient. Critical care attestation.: If time is entered above; I have spent that time in minutes in the direct care of this critically ill patient, excluding procedure time. ED Disposition Clinical Impression: Plantar fasciitis, left Disposition: HOME / SELF CARE / HOMELESS Is pt being admited?: No Does the pt Need Aspirin: No Condition: Stable Instructions: Plantar Fasciitis Additional Instructions: Follow-up with a orthopedic doctor in 3-5 days or if symptoms worsen and continue return to emergency room as soon as possible. No physical activity that extremity until cleared by orthopedic doctor Prescriptions: Naproxen 500 mg PO Q12H PRN #12 tab PRN Reason: Pain , Severe (7-10) Referrals: NELIA QUINTERO MD [Primary Care Provider] - 3-5 Days PRIMARY CAREMD [Referring] - 3-5 Days CELINE CASTILLO MD [Staff Physician] - 3-5 Days Forms: Work/School Release Form(ED) Time of Disposition: 13:31
[2021-05-08 14:12] VITALS: BP 154/109
== END 2021-05-08 14:12 | disposition home or self-care (01) ==
LOC: ED 10:36
DX: M72.2 Plantar fascial fibromatosis (principal); E11.9 Type 2 diabetes mellitus without complications; Z88.0 Allergy status to penicillin
CPT/HCPCS: 99283